=== PATIENT | male | born 1950 | race Caucasian/White ===

== ENCOUNTER 2019-08-24 09:34 | Inpatient (IN) | payer MEDICARE, OTHER ==
[2019-08-24] MEDS ORDERED: ACETAMINOPHEN TAB 500 MG TAB PO STA (09:57)
[2019-08-24] MEDS ORDERED: MORPHINE SULFATE 2 MG/ML SYRINGE IVP ONE (09:59)
[2019-08-24 10:15] LABS: Basophils % (A) 1 %; Eosinophils # (A) 0.1 k/uL (0-0.7); Eosinophils % (A) 2 %; HCT 30.5 % (39.0-53.0); HGB 9.7 gm/dL (13.0-17.5); Hypochromasia Slight; Lymphocytes # (A) 1.2 k/uL (1.0-4.8); Lymphocytes % (A) 14 %; MCH 28.7 pg (25.0-35.0); MCHC 31.8 g/dL (31.0-37.0); MCV 90.3 fL (80.0-100.0); Mean Platelet Volume 7.3; Monocytes # (A) 0.5 k/uL (0-1.0); Monocytes % (A) 6 %; Neutrophils # (A) 6.4 k/uL (1.3-7.7); Neutrophils % (A) 77 %; Platelet Count 394 k/uL (150-450); RBC 3.37 m/uL (4.30-5.90); RDW 14.2 % (11.5-15.5); WBC 8.3 k/uL (3.8-10.6)
[2019-08-24 10:23] LABS: INR 1.2 (<1.2); Partial Thromboplastin Time 22.6 sec (22.0-30.0); Prothrombin Time 11.7 sec (9.0-12.0)
--- NOTE | 2019-08-24 10:25 | ED ---
General Adult HPI - General Chief complaint: Wound/Laceration Stated complaint: Wound, poss COVID Time Seen by Provider: 08/24/19 09:38 Source: patient, RN notes reviewed, old records reviewed Mode of arrival: ambulatory Limitations: no limitations - History of Present Illness Initial comments: Patient is a 69-year-old male who presents from extended care facility with chief complaint of a sacral wound is getting worse. Patient reportedly had a fever yesterday just feeling general malaise. He was tested for [facility]id[facility] the [facility] but no results were back. He was noted to have an elevated CRP yesterday. Patient reports that he has no other complaints at this time. - Related Data Allergies Allergy/AdvReac Type Severity Reaction Status Date / Time No Known Allergies Allergy Verified 08/24/19 10:02 Review of Systems ROS Statement: Those systems with pertinent positive or pertinent negative responses have been documented in the HPI. ROS Other: All systems not noted in ROS Statement are negative. Past Medical History Past Medical History: Atrial Fibrillation, Dementia, Diabetes Mellitus, Hyperlipidemia, Hypertension Additional Past Medical History / Comment(s): gout, sacral wound, anemia, Smoking Status: Never smoker Past Alcohol Use History: None Reported Past Drug Use History: None Reported General Exam - General Exam Comments Initial Comments: 69-year-old female. Alert and oriented. No distress. Limitations: no limitations General appearance: alert, in no apparent distress Head exam: Present: atraumatic, normocephalic, normal inspection Eye exam: Present: normal appearance, PERRL, EOMI. Absent: scleral icterus, conjunctival injection, periorbital swelling ENT exam: Present: normal exam, mucous membranes moist Neck exam: Present: normal inspection. Absent: tenderness, meningismus, lymphadenopathy Respiratory exam: Present: normal lung sounds bilaterally. Absent: respiratory distress, wheezes, rales, rhonchi, stridor Cardiovascular Exam: Present: regular rate, normal rhythm, normal heart sounds. Absent: systolic murmur, diastolic murmur, rubs, gallop, clicks GI/Abdominal exam: Present: soft, normal bowel sounds. Absent: distended, tenderness, guarding, rebound, rigid Extremities exam: Present: normal inspection, full ROM, normal capillary refill. Absent: tenderness, pedal edema, joint swelling, calf tenderness Back exam: Present: other (Genital enlarged stage 3 sacral decubitus ulcer measuring roughly 10cm by 10cm. Difficult to measure with patient rolling on side and uncomfortable. ). Absent: normal inspection Neurological exam: Present: alert, oriented X3, CN II-XII intact Psychiatric exam: Present: normal affect, normal mood Skin exam: Present: warm, dry, intact, normal color. Absent: rash Course Vital Signs 08/24/19 08/24/19 08/24/19 09:53 11:00 11:30 Temperature 98.2 F Pulse Rate 94 88 77 Respiratory 18 22 18 Rate Blood Pressure 135/72 125/83 132/80 O2 Sat by Pulse 98 99 99 Oximetry Medical Decision Making - Medical Decision Making Patient is a 69-year-old male who presents emergency department today with a stage decubitus ulcer with worsening OR progression. Since here from [facility]. This time Patient has an elevated CRP 186. This is increased from yesterday which was 160. Culture was obtained from the wound. Patient was started on Zosyn and vancomycin. Coban swab is negative. Patient will be admitted at this time with consults to surgery and infectious disease. - Lab Data Result diagrams: 08/24/19 09:45 08/24/19 09:45 Lab Results 08/24/19 08/24/19 08/24/19 Range/Units 09:45 09:45 09:45 WBC 8.3 (3.8-10.6) k/uL RBC 3.37 L (4.30-5.90) m/uL Hgb 9.7 L (13.0-17.5) gm/dL Hct 30.5 L (39.0-53.0) % MCV 90.3 (80.0-100.0) fL MCH 28.7 (25.0-35.0) pg MCHC 31.8 (31.0-37.0) g/dL RDW 14.2 (11.5-15.5) % Plt Count 394 (150-450) k/uL Neutrophils % 77 % Lymphocytes % 14 % Monocytes % 6 % Eosinophils % 2 % Basophils % 1 % Neutrophils # 6.4 (1.3-7.7) k/uL Lymphocytes # 1.2 (1.0-4.8) k/uL Monocytes # 0.5 (0-1.0) k/uL Eosinophils # 0.1 (0-0.7) k/uL Basophils # 0.0 (0-0.2) k/uL Hypochromasia Slight ESR 111 H (0-15) mm/hr PT 11.7 (9.0-12.0) sec INR 1.2 H (<1.2) APTT 22.6 (22.0-30.0) sec Sodium 134 L (137-145) mmol/L Potassium 4.4 (3.5-5.1) mmol/L Chloride 105 (98-107) mmol/L Carbon Dioxide 23 (22-30) mmol/L Anion Gap 6 mmol/L BUN 17 (9-20) mg/dL Creatinine 1.08 (0.66-1.25) mg/dL Est GFR (CKD-EPI)AfAm 81 (>60 ml/min/1.73 sqM) Est GFR (CKD-EPI)NonAf 70 (>60 ml/min/1.73 sqM) Glucose 163 H (74-99) mg/dL Plasma Lactic Acid Nikolay (0.7-2.0) mmol/L Calcium 9.4 (8.4-10.2) mg/dL Total Bilirubin 0.5 (0.2-1.3) mg/dL AST 53 (17-59) U/L ALT 83 H (4-49) U/L Alkaline Phosphatase 97 (38-126) U/L Lactate Dehydrogenase 419 (313-618) U/L Troponin I (0.000-0.034) ng/mL C-Reactive Protein 187.6 H (<10.0) mg/L Total Protein 6.3 (6.3-8.2) g/dL Albumin 2.9 L (3.5-5.0) g/dL Coronavirus (PCR) (Not Detectd) 08/24/19 08/24/19 08/24/19 Range/Units 09:45 09:45 10:35 WBC (3.8-10.6) k/uL RBC (4.30-5.90) m/uL Hgb (13.0-17.5) gm/dL Hct (39.0-53.0) % MCV (80.0-100.0) fL MCH (25.0-35.0) pg MCHC (31.0-37.0) g/dL RDW (11.5-15.5) % Plt Count (150-450) k/uL Neutrophils % % Lymphocytes % % Monocytes % % Eosinophils % % Basophils % % Neutrophils # (1.3-7.7) k/uL Lymphocytes # (1.0-4.8) k/uL Monocytes # (0-1.0) k/uL Eosinophils # (0-0.7) k/uL Basophils # (0-0.2) k/uL Hypochromasia ESR (0-15) mm/hr PT (9.0-12.0) sec INR (<1.2) APTT (22.0-30.0) sec Sodium (137-145) mmol/L Potassium (3.5-5.1) mmol/L Chloride (98-107) mmol/L Carbon Dioxide (22-30) mmol/L Anion Gap mmol/L BUN (9-20) mg/dL Creatinine (0.66-1.25) mg/dL Est GFR (CKD-EPI)AfAm (>60 ml/min/1.73 sqM) Est GFR (CKD-EPI)NonAf (>60 ml/min/1.73 sqM) Glucose (74-99) mg/dL Plasma Lactic Acid Nikolay 1.1 (0.7-2.0) mmol/L Calcium (8.4-10.2) mg/dL Total Bilirubin (0.2-1.3) mg/dL AST (17-59) U/L ALT (4-49) U/L Alkaline Phosphatase (38-126) U/L Lactate Dehydrogenase (313-618) U/L Troponin I 0.019 (0.000-0.034) ng/mL C-Reactive Protein (<10.0) mg/L Total Protein (6.3-8.2) g/dL Albumin (3.5-5.0) g/dL Coronavirus (PCR) Not Detected (Not Detectd) 08/24/19 10:25 EKG performed at 10:03 AM shows normal sinus rhythm. Infarct age indeterminate. Cannot rule out anterior infarct. Ventricular rate 85 beats were minute arnel od. It was 180 ms. QS duration is 12 ms. QT QTc is 372/440 ms. - Radiology Data Radiology results: report reviewed Chest chest x-rays negative for focal infiltrate at this time. Disposition Clinical Impression: Sacral decubitus ulcer, Elevated C-reactive protein (CRP) Disposition: ADMITTED IP TO THIS HOSP Condition: Good Is patient prescribed a controlled substance at d/c from ED?: No Referrals: Peter Youssef DO [Primary Care Provider] - 1-2 days Time of Disposition: 12:29
[2019-08-24 10:29] LABS: Albumin 2.9 g/dL (3.5-5.0); Calcium 9.4 mg/dL (8.4-10.2); Potassium 4.4 mmol/L (3.5-5.1); Total Bilirubin 0.5 mg/dL (0.2-1.3); Total Protein 6.3 g/dL (6.3-8.2)
--- NOTE | 2019-08-24 10:45 | XR ---
EXAMINATION TYPE: XR chest 2V DATE OF EXAM: 08/24/2019 COMPARISON: 06/06/2012 HISTORY: 69-year-old male with fever TECHNIQUE: AP and lateral views FINDINGS: Median sternotomy wires and postoperative clips in the mediastinum. Heart upper limits of normal in s ize. Some hazy density at the cardiac apex suggestive of epicardial fat pad. No lee ann consolidation o r pleural effusion. Mild interstitial prominence has a chronic appearance. IMPRESSION: No focal infiltrate at this time.
[2019-08-24 10:46] LABS: C Reactive Protein 187.6 mg/L (<10.0)
[2019-08-24 10:59] LABS: Erythrocyte Sedimentation Rate 111 mm/hr (0-15)
[2019-08-24] MEDS ORDERED: VANCOMYCIN IV PER PHARMACY 1 EACH MISC MISCELLANE PRN (12:02)
[2019-08-24] MEDS ORDERED: PIPERACILLIN-TAZOBACTAM 3.375 GM in SODIUM CHLORIDE 0.9% 100 ML IVPB STA (12:02)
[2019-08-24] MEDS ORDERED: VANCOMYCIN 1,750 MG in SODIUM CHLORIDE 0.9% 500 ML 500 ML IVPB STA (12:10)
[2019-08-24] MEDS ORDERED: HYDROmorphone 0.5 MG/0.5 ML SYRINGE IVP PRN (12:29)
[2019-08-24] MEDS ORDERED: IBUPROFEN 400 MG TAB PO PRN (12:29)
[2019-08-24] MEDS ORDERED: ACETAMINOPHEN TAB 325 MG TAB PO PRN (12:29)
[2019-08-24] MEDS ORDERED: ONDANSETRON 4 MG/2 ML VIAL IVP PRN (12:29)
[2019-08-24] MEDS ORDERED: MORPHINE SULFATE 4 MG/ML SYRINGE IV PRN (12:29)
[2019-08-24] MEDS ORDERED: NALOXONE 0.4 MG/ML 1 ML VIAL IV PRN (12:29)
[2019-08-24] MEDS: SODIUM CHLORIDE 0.9% 1,000 ML IV SCH ×2 (12:57→22:08)
--- NOTE | 2019-08-24 16:38 | P.HPIM ---
History of Present Illness H&P Date: 08/24/19 Chief Complaint: Infected decubitus ulcer History of presenting complaint: This is a pleasant 69-year-old patient, Dr. Youssef whose chronic stable medical conditions include gout, hypertension, hyperlipidemia, diabetes, and mentioned, to establish. Presented from the [facility] with a sacral wound getting worse. It is a decub ulcer. It is started to drain. Patient has pain. No obvious fever and chills. His appetite is somewhat okay. Patient of the most detailed historian. Pain is localized to the sacral area. Review of systems: GEN.: Tired EYES: None HEENT: None NECK: None RESPIRATORY: None CARDIOVASCULAR: None GASTROINTESTINAL: None GENITOURINARY: None MUSCULOSKELETAL: Joint pains LYMPHATICS: None HEMATOLOGICAL: None PSYCHIATRY: A bit forgetful NEUROLOGICAL: None Past medical history to include: Atrial fibrillation, dementia, diabetes mellitus type 2, hyperlipidemia, hypertension, gout, anemia Social history: Resident of [facility]. No reported history of smoking or alcohol. Family history: Reviewed, noncontributory to presentation Physical examination: VITAL SIGNS: 98.2, 94, 18, heart and 35/72, 98% on room air GENERAL: BMI 31.3, laying in bed, a bit uncomfortable. EYES: Pupils equal. Conjunctiva normal. HEENT: External appearance of nose and ears normal, oral cavity grossly normal. NECK: JVD not raised; masses not palpable. HEART: First and second heart sounds are normal; no edema. LUNGS: Respiratory rate normal; clear to auscultation. ABDOMEN: Soft, nontender, liver spleen not palpable, no masses palpable. PSYCH: Able to answer simple questionsl. NEUROLOGICAL: Cranial nerves grossly intact; no facial asymmetry, power and sensation grossly intact. DERMATOLOGICAL: Large sacral decubitus ulcer. More details and nursing notes. Draining LYMPHATICS: No lymph nodes palpable in the axilla and neck INVESTIGATIONS, reviewed in the clinical context: White count 8.3 hemoglobin 9.7 platelets 394 percussion 4.4 creatinine 1.08 C-reactive protein 187, albumin 2.9, COVID-19 PCR-not detected Assessment: -Acute infected coccygeal decubitus ulcer -Persistent atrial fibrillation -Late onset Alzheimer's dementia -Diabetes mellitus type 2 -Hyperlipidemia -Essential hypertension Plan: Home medications resumed. Patient started on vancomycin. Infectious disease and surgery is consulted. Lovenox for DVT prophylaxis. Care was discussed with the patient. Questions were answered. Patient will need debridement of the infected ulcer. Past Medical History Past Medical History: Atrial Fibrillation, Dementia, Diabetes Mellitus, Hyperlipidemia, Hypertension Additional Past Medical History / Comment(s): gout, sacral wound, anemia, Smoking Status: Never smoker Past Alcohol Use History: None Reported Past Drug Use History: None Reported Medications and Allergies Home Medications Medication Instructions Recorded Confirmed Type Atorvastatin [Lipitor] 10 mg PO HS 08/24/19 08/24/19 History Hydrocodone/Acetaminophen [[place] 1 tab PO Q6H PRN 08/24/19 08/24/19 History 7.5-325] Ibuprofen 600 mg PO Q6H PRN 08/24/19 08/24/19 History Metoprolol Succinate [Kapspargo 25 mg PO DAILY 08/24/19 08/24/19 History Sprinkle] Mupirocin 2% Oint [Bactroban 2% 1 applic TOPICAL DAILY PRN 08/24/19 08/24/19 History Oint] Timolol 0.5% Ophth Soln [Timoptic 1 drop BOTH EYES BID 08/24/19 08/24/19 History 0.5% Ophth Soln] amLODIPine [Norvasc] 5 mg PO DAILY 08/24/19 08/24/19 History Allergies Allergy/AdvReac Type Severity Reaction Status Date / Time No Known Allergies Allergy Verified 08/24/19 12:50 Physical Exam Vitals: Vital Signs Temp Pulse Pulse Resp BP BP Pulse Ox 08/24/19 15:19 98.4 F 89 16 135/66 100 08/24/19 13:51 98.7 F 89 18 133/70 08/24/19 13:00 99.1 F 87 19 147/76 98 08/24/19 12:30 87 19 107/68 08/24/19 12:00 75 17 115/63 08/24/19 11:30 77 18 132/80 99 08/24/19 11:00 88 22 125/83 99 08/24/19 09:53 98.2 F 94 18 135/72 98 Intake and Output 08/24/19 08/24/19 08/24/19 06:59 14:59 22:59 Other: Weight 90.718 kg Results CBC & Chem 7: 08/24/19 09:45 08/24/19 09:45 Labs: Abnormal Lab Results - Last 24 Hours (Table) 08/24/19 08/24/19 08/24/19 Range/Units 09:45 09:45 09:45 RBC 3.37 L (4.30-5.90) m/uL Hgb 9.7 L (13.0-17.5) gm/dL Hct 30.5 L (39.0-53.0) % ESR 111 H (0-15) mm/hr INR 1.2 H (<1.2) Sodium 134 L (137-145) mmol/L Glucose 163 H (74-99) mg/dL ALT 83 H (4-49) U/L C-Reactive Protein 187.6 H (<10.0) mg/L Albumin 2.9 L (3.5-5.0) g/dL Microbiology - Last 24 Hours (Table) 08/24/19 09:45 Wound Culture - Preliminary Buttock
[2019-08-24 16:54] LABS: Glucose,Whole Blood 119 mg/dL (75-99)
[2019-08-24] MEDS: ENOXAPARIN 40 MG/0.4 ML SYRINGE SQ SCH (17:08)
[2019-08-24] MEDS: INSULIN ASPART (NovoLOG) 100 UNIT/ML VIAL SQ SCH ×2 (17:15→20:16)
[2019-08-24 17:35] LABS: Appearance,Urine Clear (Clear); Bacteria,Urine Rare /hpf; Bilirubin,Urine Negative (Negative); Blood,Urine Small (Negative); Color,Urine Yellow; Glucose,Urine (UA) Negative (Negative); Hyaline Casts,Urine 1 /lpf (0-2); Ketones,Urine Negative (Negative); Leukocyte Esterase,Urine Negative (Negative); Mucus,Urine Rare /hpf; Nitrite,Urine Negative (Negative); PH, Urine 5.5 (5.0-8.0); Protein,Urine Negative (Negative); RBC,Urine 26 /hpf (0-5); Specific Gravity,Urine 1.016 (1.001-1.035); Urobilinogen,Urine <2.0 mg/dL (<2.0); WBC,Urine 1 /hpf (0-5)
[2019-08-24] MEDS: HYDROcodone/APAP 7.5-325MG 1 EACH TAB PO PRN (18:17)
[2019-08-24 20:13] LABS: Glucose,Whole Blood 119 mg/dL (75-99)
[2019-08-24] MEDS: TIMOLOL 0.5% OPHTH DROPS 5 ML BTL BOTH EYES SCH (20:23)
[2019-08-24] MEDS: ATORVASTATIN 10 MG TAB PO SCH (20:23)
--- NOTE | 2019-08-25 00:28 | CONS ---
CONSULTATION DATE OF SERVICE: 08/24/2019. REASON FOR CONSULTATION: Infected sacral pressure ulcer. HISTORY OF PRESENT ILLNESS: The patient is a 69-year-old male who has been brought to the ER for evaluation of sacral pressure ulcer that had been getting worse. Apparently the patient did have fever yesterday with generalized malaise. The patient did have COVID- 19 testing done in the correction and results pending. The patient subsequently has been sent to [facility] ER for management of infected sacral pressure ulcer with concern for possible cellulitis and COVID-19 infection. The patient currently denies having any fever or any chills. He denies having any headache. No URI symptoms. No chest pain, shortness of breath or cough. No abdominal pain or diarrhea. The patient is not sure for how long he has a sacral pressure ulcer and local treatment has been. Patient on admission to the hospital has been afebrile. He did have a normal white count with no lymphopenia. ESR was elevated to 111. The patient's creatinine was normal. ALT was 83. CRP is 187. Urine has been negative. COVID-19 testing was negative. The patient did have a chest x-ray which was negative. Infectious Disease was consulted for further management for local wound care and need for antibiotic therapy. The patient is currently on vancomycin. REVIEW OF SYSTEMS: Positive points have been mentioned in HPI. Rest of systems are negative. PAST MEDICAL HISTORY: Atrial fibrillation, diabetes mellitus, hypertension, hyperlipidemia, dementia. PAST SURGICAL HISTORY: Surgical debridement of his sacral wound. SOCIAL HISTORY: Current correction resident. No smoking, drinking or drug use. FAMILY HISTORY: No pertinent findings noticed. ALLERGIES: No known drug allergies. MEDICATIONS: Medications include the patient is currently on Tylenol, [place], Norvasc, Lipitor, Lovenox, Dilaudid, Motrin, NovoLog, Toprol-XL, morphine sulfate, Narcan, Zofran, Protonix and vancomycin pharmacy to dose. PHYSICAL EXAMINATION: Blood pressure is 118/63 with a pulse of 86, temperature 98.5. He is 98% on room air. General description is an elderly male lying in bed in no distress. No tachypnea or accessory muscle of respiration use. HEENT: Examination shows slight pallor. No scleral icterus. Oral mucosa membrane is dry. NECK: Trachea central. No thyromegaly. LUNGS: Unlabored breathing, clear to auscultation. No wheeze or crackle. HEART: S1, S2. Regular rate and rhythm. ABDOMEN: Soft, no tenderness. No guarding or rigidity. EXTREMITIES: No edema of feet. Examination of sacral wound did show significant amount of slough tissue with surrounding erythema and . NEUROLOGICAL: Patient is awake, alert, oriented x3. Mood and affect normal. LABS: Hemoglobin 9.7, white count 8.3, BUN of 17, creatinine 1.08. Electrolytes have been normal. Wound cultures currently pending. DIAGNOSTIC IMPRESSION AND PLAN: Patient with infected sacral pressure ulcer, likely responsible for his fever. Clinically doubt COVID-19. This patient will likely need deep surgical debridement and deep culture to determine the infected pathogen and likely IV antibiotic therapy and local wound care. PLAN: 1. Await surgical debridement and deep cultures. 2. Wet-to-dry dressing for now. 3. Continue the vancomycin pharmacy to dose while watching his kidney function and vancomycin trough closely. 4. We will follow on his clinical condition and culture to further adjust medication if needed. Thank you for this consultation. Will follow this patient along with you. MMODL / IJN: [id number] /
[2019-08-25] MEDS: HYDROcodone/APAP 7.5-325MG 1 EACH TAB PO PRN (03:32)
[2019-08-25] MEDS: VANCOMYCIN 1,750 MG in SODIUM CHLORIDE 0.9% 500 ML 500 ML IVPB SCH ×2 (05:25→21:40)
[2019-08-25] MEDS ORDERED: DEXAMETHASONE SOD PHOSPHATE 10 MG/ML 1 ML VIAL IV ONE (05:56)
[2019-08-25] MEDS ORDERED: HYDROmorphone 0.5 MG/0.5 ML SYRINGE IVP PRN (05:56)
[2019-08-25] MEDS ORDERED: ONDANSETRON 4 MG/2 ML VIAL IVP ONE (05:56)
[2019-08-25 06:49] LABS: Glucose,Whole Blood 126 mg/dL (75-99)
[2019-08-25] MEDS: INSULIN ASPART (NovoLOG) 100 UNIT/ML VIAL SQ SCH ×4 (07:05→20:53)
[2019-08-25] MEDS: LACTATED RINGERS 1,000 ML IV SCH (07:42)
[2019-08-25] MEDS: METOPROLOL SUCCINATE (ER) 25 MG TAB.ER.24H PO SCH (07:43)
[2019-08-25] MEDS: amLODIPine 5 MG TAB PO SCH (07:43)
[2019-08-25] MEDS: SODIUM CHLORIDE 0.9% 1,000 ML IV SCH ×2 (07:44→19:33)
[2019-08-25] MEDS: PANTOPRAZOLE 40 MG/10 ML VIAL IV SCH (07:44)
[2019-08-25] MEDS: TIMOLOL 0.5% OPHTH DROPS 5 ML BTL BOTH EYES SCH ×2 (07:45→21:40)
--- NOTE | 2019-08-25 08:12 | P.GSCN ---
History of Present Illness Consult date: 08/25/19 Reason for Consult: sacral decubitus ulcer Requesting physician: Rhea Pizarro History of present illness: CHIEF COMPLAINT: Sacral decubitus ulcer HISTORY OF PRESENT ILLNESS: 69-year-old male who is currently admitted to the hospital secondary to worsening sacral decubitus ulcer. General surgery was consulted for further evaluation. PAST MEDICAL HISTORY: See list. PAST SURGICAL HISTORY: See list. SOCIAL HISTORY: No illicit drug use. REVIEW OF SYSTEMS: CONSTITUTIONAL: Reports fever. Reports generalized malaise. HEENT: Denies blurred vision, vision changes, or eye pain. Denies hemoptysis CARDIOVASCULAR: Denies chest pain or pressure. RESPIRATORY: No shortness of breath. GASTROINTESTINAL: Denies abdominal pain. Denies nausea or vomiting HEMATOLOGIC: Denies bleeding disorders. GENITOURINARY: Denies any blood in urine. SKIN: Reports chronic sacral wound. PHYSICAL EXAM: VITAL SIGNS: Reviewed. GENERAL: Well-developed in no acute distress. HEENT: No sclera icterus. Extraocular movements grossly intact. Moist buccal mucosa. Head is atraumatic, normocephalic. ABDOMEN: Soft. Nondistended. Nontender. NEUROLOGIC: Alert and oriented. Cranial nerves II through XII grossly intact. SKIN: Sacral decubitus ulcer with large amount of slough and erythema. LABORATORY DATA: WBC 8.3. Hemoglobin 9.7. Platelet count 394. IMAGING: Chest x-ray: No focal infiltrate ASSESSMENT: 1. Stage IV sacral decubitus ulcer PLAN: Continue antibiotics per infectious disease Patient to undergo surgical debridement of sacral decubitus ulcer today with Dr. Bertrand Nurse practitioner note has been reviewed by physician. Signing provider agrees with the documented findings, assessment, and plan of care. Past Medical History Past Medical History: Atrial Fibrillation, Dementia, Diabetes Mellitus, Hyperlipidemia, Hypertension Additional Past Medical History / Comment(s): gout, sacral wound, anemia, History of Any Multi-Drug Resistant Organisms: None Reported Smoking Status: Never smoker Past Alcohol Use History: None Reported Past Drug Use History: None Reported Medications and Allergies Home Medications Medication Instructions Recorded Confirmed Type Atorvastatin [Lipitor] 10 mg PO HS 08/24/19 08/24/19 History Hydrocodone/Acetaminophen [[place] 1 tab PO Q6H PRN 08/24/19 08/24/19 History 7.5-325] Ibuprofen 600 mg PO Q6H PRN 08/24/19 08/24/19 History Metoprolol Succinate [Kapspargo 25 mg PO DAILY 08/24/19 08/24/19 History Sprinkle] Mupirocin 2% Oint [Bactroban 2% 1 applic TOPICAL DAILY PRN 08/24/19 08/24/19 History Oint] Timolol 0.5% Ophth Soln [Timoptic 1 drop BOTH EYES BID 08/24/19 08/24/19 History 0.5% Ophth Soln] amLODIPine [Norvasc] 5 mg PO DAILY 08/24/19 08/24/19 History Allergies Allergy/AdvReac Type Severity Reaction Status Date / Time No Known Allergies Allergy Verified 08/24/19 12:50 Surgical - Exam Vital Signs Temp Pulse Resp BP Pulse Ox 98.2 F 94 18 135/72 98 08/24/19 09:53 08/24/19 09:53 08/24/19 09:53 08/24/19 09:53 08/24/19 09:53 Results - Labs 08/24/19 09:45 08/24/19 09:45 Abnormal Lab Results - Last 24 Hours (Table) 08/24/19 08/24/19 08/24/19 Range/Units 09:45 09:45 09:45 RBC 3.37 L (4.30-5.90) m/uL Hgb 9.7 L (13.0-17.5) gm/dL Hct 30.5 L (39.0-53.0) % ESR 111 H (0-15) mm/hr INR 1.2 H (<1.2) Sodium 134 L (137-145) mmol/L Glucose 163 H (74-99) mg/dL POC Glucose (mg/dL) (75-99) mg/dL ALT 83 H (4-49) U/L C-Reactive Protein 187.6 H (<10.0) mg/L Albumin 2.9 L (3.5-5.0) g/dL Urine Blood (Negative) Urine RBC (0-5) /hpf Urine Bacteria (None) /hpf Urine Mucus (None) /hpf 08/24/19 08/24/19 08/24/19 Range/Units 16:53 17:05 20:10 RBC (4.30-5.90) m/uL Hgb (13.0-17.5) gm/dL Hct (39.0-53.0) % ESR (0-15) mm/hr INR (<1.2) Sodium (137-145) mmol/L Glucose (74-99) mg/dL POC Glucose (mg/dL) 119 H 119 H (75-99) mg/dL ALT (4-49) U/L C-Reactive Protein (<10.0) mg/L Albumin (3.5-5.0) g/dL Urine Blood Small H (Negative) Urine RBC 26 H (0-5) /hpf Urine Bacteria Rare H (None) /hpf Urine Mucus Rare H (None) /hpf 08/25/19 Range/Units 06:44 RBC (4.30-5.90) m/uL Hgb (13.0-17.5) gm/dL Hct (39.0-53.0) % ESR (0-15) mm/hr INR (<1.2) Sodium (137-145) mmol/L Glucose (74-99) mg/dL POC Glucose (mg/dL) 126 H (75-99) mg/dL ALT (4-49) U/L C-Reactive Protein (<10.0) mg/L Albumin (3.5-5.0) g/dL Urine Blood (Negative) Urine RBC (0-5) /hpf Urine Bacteria (None) /hpf Urine Mucus (None) /hpf Microbiology - Last 24 Hours (Table) 08/24/19 09:45 Gram Stain - Preliminary Buttock Wound Culture - Preliminary Diabetes panel 08/24/19 Range/Units 09:45 Sodium 134 L (137-145) mmol/L Potassium 4.4 (3.5-5.1) mmol/L Chloride 105 (98-107) mmol/L Carbon Dioxide 23 (22-30) mmol/L BUN 17 (9-20) mg/dL Creatinine 1.08 (0.66-1.25) mg/dL Glucose 163 H (74-99) mg/dL Calcium 9.4 (8.4-10.2) mg/dL AST 53 (17-59) U/L ALT 83 H (4-49) U/L Alkaline Phosphatase 97 (38-126) U/L Total Protein 6.3 (6.3-8.2) g/dL Albumin 2.9 L (3.5-5.0) g/dL Calcium panel 08/24/19 Range/Units 09:45 Calcium 9.4 (8.4-10.2) mg/dL Albumin 2.9 L (3.5-5.0) g/dL Pituitary panel 08/24/19 Range/Units 09:45 Sodium 134 L (137-145) mmol/L Potassium 4.4 (3.5-5.1) mmol/L Chloride 105 (98-107) mmol/L Carbon Dioxide 23 (22-30) mmol/L BUN 17 (9-20) mg/dL Creatinine 1.08 (0.66-1.25) mg/dL Glucose 163 H (74-99) mg/dL Calcium 9.4 (8.4-10.2) mg/dL Adrenal panel 08/24/19 Range/Units 09:45 Sodium 134 L (137-145) mmol/L Potassium 4.4 (3.5-5.1) mmol/L Chloride 105 (98-107) mmol/L Carbon Dioxide 23 (22-30) mmol/L BUN 17 (9-20) mg/dL Creatinine 1.08 (0.66-1.25) mg/dL Glucose 163 H (74-99) mg/dL Calcium 9.4 (8.4-10.2) mg/dL Total Bilirubin 0.5 (0.2-1.3) mg/dL AST 53 (17-59) U/L ALT 83 H (4-49) U/L Alkaline Phosphatase 97 (38-126) U/L Total Protein 6.3 (6.3-8.2) g/dL Albumin 2.9 L (3.5-5.0) g/dL
[2019-08-25 11:39] LABS: Glucose,Whole Blood 118 mg/dL (75-99)
[2019-08-25 13:01] VITALS: BMI 31.3
[2019-08-25] MEDS ORDERED: SUCCINYLCHOLINE CHLORIDE 100 MG/5 ML SYR IV ONE (15:18)
[2019-08-25] MEDS ORDERED: LACTATED RINGERS 1,000 ML IV ONE (15:18)
[2019-08-25] MEDS ORDERED: PROPOFOL 10 MG/ML 20 ML VIAL IV ONE (15:18)
[2019-08-25] MEDS ORDERED: fentaNYL (PF) 50 MCG/ML 2 ML AMP ONE (15:18)
[2019-08-25] MEDS ORDERED: LIDOCAINE 1% INJ 10MG/ML (20 ML MDV) ONE (15:18)
[2019-08-25] MEDS: ENOXAPARIN 40 MG/0.4 ML SYRINGE SQ SCH (15:32)
--- NOTE | 2019-08-25 15:56 | P.OP ---
Date of Procedure: 08/25/19 Preoperative Diagnosis: Sacral decubitus ulcer Postoperative Diagnosis: Sacral decub's ulcer with necrosis of skin and fat Procedure(s) Performed: Debridement of sacral decubitus ulcer Anesthesia: GUSTAVO Surgeon: Jorge Bertrand Estimated Blood Loss (ml): 10 Pathology: other (Necrotic skin and fat) Condition: stable Disposition: PACU Description of Procedure: The patient's placed in the operative table in the supine position. He received general anesthesia. His sacrum was prepped and draped usual sterile fashion. Patient had a full-thickness he was ulcer. Using a 15 blade the skin and fat were debrided. This was taken back to the level of bleeding fat. The [place]. The wound measured 7 x 10 x 3 cm. Patient top procedure well sterile dressing applied. He was sent to the surgical floor in stable condition.
[2019-08-25 16:33] LABS: Glucose,Whole Blood 105 mg/dL (75-99)
[2019-08-25 20:49] LABS: Glucose,Whole Blood 119 mg/dL (75-99)
[2019-08-25] MEDS: ATORVASTATIN 10 MG TAB PO SCH (21:40)
[2019-08-25] MEDS: AMPICILLIN-SULBACTAM 3 GM in SODIUM CHLORIDE 0.9% 100 ML IVPB SCH (23:24)
--- NOTE | 2019-08-26 02:44 | PN ---
PROGRESS NOTE DATE OF SERVICE: 08/25/2019 REASON FOR FOLLOW UP: Infected sacral pressure ulcer. INTERVAL HISTORY: The patient was seen on rounds this morning. The patient has been afebrile. The patient denied having any chest pain. No shortness of breath or cough. No nausea, no vomiting. No abdominal pain. No pain to the sacral wound area. PHYSICAL EXAMINATION: Blood pressure 130/73 with a pulse of 96, temperature 98.5. He is 98% on room air. General description is an elderly male lying in bed in no distress. Respiratory system: Unlabored breathing, clear to auscultation anteriorly. Heart S1, S2. Regular rate and rhythm. Abdomen soft, no tenderness. LABS: No new labs have been obtained today. Wound culture with gram-negative bacilli and group D Enterococcus. DIAGNOSTIC IMPRESSION AND PLAN: Patient with infected sacral pressure ulcer. Wound culture now showing group group D Enterococcus and gram-negative bacilli. We will add Unasyn to his current medical regime of vancomycin. In view of underlying ( ), the patient will need a PICC line for outpatient antibiotic therapy. Local wound care. ( ) after re-evaluation of the wound hospice post dialysis, possible wound VAC and continue supportive care. MMODL / IJN: [id number] /
[2019-08-26] MEDS: AMPICILLIN-SULBACTAM 3 GM in SODIUM CHLORIDE 0.9% 100 ML IVPB SCH ×3 (05:15→18:07)
[2019-08-26] MEDS: LACTATED RINGERS 1,000 ML IV SCH (05:16)
[2019-08-26] MEDS: SODIUM CHLORIDE 0.9% 1,000 ML IV SCH ×3 (05:16→21:59)
[2019-08-26 07:18] LABS: Glucose,Whole Blood 109 mg/dL (75-99)
[2019-08-26] MEDS: METOPROLOL SUCCINATE (ER) 25 MG TAB.ER.24H PO SCH (07:26)
[2019-08-26] MEDS: PANTOPRAZOLE 40 MG/10 ML VIAL IV SCH (07:26)
[2019-08-26] MEDS: amLODIPine 5 MG TAB PO SCH (07:27)
[2019-08-26] MEDS: HYDROcodone/APAP 7.5-325MG 1 EACH TAB PO PRN ×3 (07:27→22:06)
[2019-08-26] MEDS: TIMOLOL 0.5% OPHTH DROPS 5 ML BTL BOTH EYES SCH ×2 (07:28→21:59)
[2019-08-26] MEDS: INSULIN ASPART (NovoLOG) 100 UNIT/ML VIAL SQ SCH ×4 (07:30→22:00)
[2019-08-26 08:34] LABS: Calcium 9.1 mg/dL (8.4-10.2); Potassium 4.6 mmol/L (3.5-5.1)
--- NOTE | 2019-08-26 10:36 | CDI ---
Documentation Clarification Form Date: 08/26/2019 09:18:58 AM From: Cynthia Cunha RN CCDS Admit Date: 08/26/2019 07:47:00 AM Patient Name: Jeison Nguyen Visit Number: [id number] Discharge Date: ATTENTION: The Clinical Documentation Specialists (CDI) and [facility] Coding Staff appreciate your assistance in clarifying documentation. Please respond to the clarification below the line at the bottom and electronically sign. The CDI & [facility] Coding staff will review the response and follow-up if needed. Please note: Queries are made part of the Legal Health Record. If you have any questions, please contact the author of this message via ITS. Dr. Jorge Bertrand Per your procedure note, a debridement was performed on 08/24 History/Risk Factors: 63-year-old male presents to the ED from [facility] with a sacral wound that is getting worse and starting to drain. Medical history DM2, HTN, Atrial Fib and Alzheimers dementia. Clinical Indicators: 08/24 Surgical Consult Stage IV Sacral Decubitus Ulcer 08/24 Procedure Note - Sacral Decubitus Ulcer Debridement, 15 blade, necrosis of skin and fat, 7x 10 x3 cm Treatment: Surgical Treatment of a Sacral decubitus Ulcer Five elements required for accurate and compliant documentation of a debridement: 1. Technique used (e.g., excisional, excised, cutting, etc.) 2. Instrument(s) used (e.g., scalpel, curette, etc.) 3. Nature of the tissue removed (e.g., necrotic, devitalized tissues, non- viable tissue, etc.) 4. Appearance and size of the wound (e.g., down to fresh bleeding tissue, 7cm x 10cm, etc.) 5. Depth of the debridement* (e.g., skin, subcutaneous tissue, fascia, muscle, bone, etc.) In order to capture the severity of condition and code the appropriate procedure; could you please document the following: Excisional debridement (the removal of necrotic, devitalized tissue or slough by means of cutting away of tissue) Non-excisional debridement (the removal of necrotic, devitalized tissue or slough by means of flushing, brushing, or washing. (Irrigation) Appearance and size of the wound Depth of Debridement*(e.g., skin, subcutaneous tissue, fascia, muscle, bone, etc.) Other; please specify Unable to determine (Last Revision: July 2017) The tissue was excisional debridement of necrotic and devitalized tissue by means of cutting with a 15 blade MTDD
[2019-08-26 11:58] LABS: Glucose,Whole Blood 128 mg/dL (75-99)
[2019-08-26] MEDS: VANCOMYCIN 1,750 MG in SODIUM CHLORIDE 0.9% 500 ML 500 ML IVPB SCH (14:05)
--- NOTE | 2019-08-26 14:45 | P.PN ---
Subjective Progress Note Date: 08/26/19 CHIEF COMPLAINT: Sacral decubitus ulcer HISTORY OF PRESENT ILLNESS: Patient is status post debridement of sacral decubitus ulcer with Dr. Bertrand. Postop day #1. Patient reports his pain is tolerable. PHYSICAL EXAM: VITAL SIGNS: Reviewed. GENERAL: Well-developed in no acute distress. HEENT: No sclera icterus. Extraocular movements grossly intact. Moist buccal mucosa. Head is atraumatic, normocephalic. ABDOMEN: Soft. Nondistended. Nontender. NEUROLOGIC: Alert and oriented. Cranial nerves II through XII grossly intact. SKIN: Dressing clean dry and intact ASSESSMENT: 1. Stage IV sacral decubitus ulcer PLAN: Continue antibiotics per infectious disease Continue local wound care per infectious disease Nurse practitioner note has been reviewed by physician. Signing provider agrees with the documented findings, assessment, and plan of care. Objective - Vital Signs Vital signs: Vital Signs Temp 98.5 F 08/26/19 07:35 Pulse 86 08/26/19 07:35 Resp 16 08/26/19 07:35 BP 123/62 08/26/19 07:35 Pulse Ox 98 08/26/19 07:35 Intake & Output 08/25/19 08/26/19 08/26/19 18:59 06:59 18:59 Intake Total 937 231 1176 Output Total 5 300 Balance 050 124 3276 Weight 90.718 kg Intake: IV 200 Intake, IV Titration 260 1300 Amount Ampicillin-Sulbactam 3 gm 100 In Sodium Chloride 0.9% 100 ml @ 200 mls/hr IVPB Q6HR [facility] Rx#:[id number] Lactated Ringers 1,000 ml 60 @ 20 mls/hr IV .Q24H [facility] Rx#:[id number] Sodium Chloride 0.9% 1, 200 700 000 ml @ 100 mls/hr IV . Q10H [facility] Rx#:[id number] Vancomycin 1,750 mg In 500 Sodium Chloride 0.9% 500 ml 500 ml @ 167 mls/hr IVPB Q16H [facility] Rx#: [id number] Oral 480 360 Output: Urine 300 Estimated Blood Loss 5 Other: Voiding Method Urinal Urinal Urinal # Voids 1 - Labs CBC & Chem 7: 08/24/19 09:45 08/26/19 07:22 Labs: Abnormal Lab Results - Last 24 Hours (Table) 08/25/19 08/25/19 08/26/19 Range/Units 16:31 20:28 07:13 Chloride (98-107) mmol/L Creatinine (0.66-1.25) mg/dL Glucose (74-99) mg/dL POC Glucose (mg/dL) 105 H 119 H 109 H (75-99) mg/dL 08/26/19 08/26/19 Range/Units 07:22 11:56 Chloride 108 H (98-107) mmol/L Creatinine 1.29 H (0.66-1.25) mg/dL Glucose 107 H (74-99) mg/dL POC Glucose (mg/dL) 128 H (75-99) mg/dL Microbiology - Last 24 Hours (Table) 08/24/19 10:45 Blood Culture - Preliminary Blood No Growth after 48 hours 08/24/19 09:45 Gram Stain - Final Buttock Wound Culture - Preliminary Escherichia coli Enterococcus faecalis Enterobacter cloacae
[2019-08-26] MEDS: ENOXAPARIN 40 MG/0.4 ML SYRINGE SQ SCH (16:34)
--- NOTE | 2019-08-26 20:47 | P.PN ---
Progress Note - Text Progress Note Date: 08/25/19 Chief Complaint: Infected decubitus ulcer History of presenting complaint: This is a pleasant 69-year-old patient, Dr. Youssef whose chronic stable medical conditions include gout, hypertension, hyperlipidemia, diabetes, and mentioned, to establish. Presented from the [facility] with a sacral wound getting worse. It is a decub ulcer. It is started to drain. Patient has pain. No obvious fever and chills. His appetite is somewhat okay. Patient of the most detailed historian. Pain is localized to the sacral area. Admitted with infected decubitus ulcer. Today-when debridement of the ulcer. Pain control. No new issues. Laying in bed. Did tolerate some diet. Review of systems: Was done for constitutional, cardiovascular, GI, pulmonary. relevant finding as above Active Medications Acetaminophen (Tylenol Tab) 650 mg PO Q6HR PRN PRN Reason: Mild Pain or Fever > 100.5 Hydrocodone Bitart/Acetaminophen ([place] 7.5-325) 1 each PO Q6H PRN PRN Reason: Pain Last Admin: 08/26/19 14:04 Dose: 1 each Documented by: Amlodipine Besylate (Norvasc) 5 mg PO DAILY [facility] Last Admin: 08/26/19 07:27 Dose: 5 mg Documented by: Atorvastatin Calcium (Lipitor) 10 mg PO HS [facility] Last Admin: 08/25/19 21:40 Dose: 10 mg Documented by: Enoxaparin Sodium (Lovenox) 40 mg SQ Q24H [facility] Last Admin: 08/26/19 16:34 Dose: 40 mg Documented by: Hydromorphone HCl (Dilaudid) 0.5 mg IVP Q3HR PRN PRN Reason: Moderate Pain Sodium Chloride (Saline 0.9%) 1,000 mls @ 100 mls/hr IV .Q10H [facility] Last Admin: 08/26/19 14:05 Dose: Not Given Documented by: Vancomycin HCl 1,750 mg/ (Sodium Chloride) 500 mls @ 167 mls/hr IVPB Q16H [facility] Last Admin: 08/26/19 14:05 Dose: 167 mls/hr Documented by: Lactated Ringer's (Lactated Ringers) 1,000 mls @ 20 mls/hr IV .Q24H [facility] Last Admin: 08/26/19 05:16 Dose: Not Given Documented by: Ampicillin Sodium/Sulbactam (Sodium 3 gm/ Sodium Chloride) 100 mls @ 200 mls/hr IVPB Q6HR [facility] Last Admin: 08/26/19 18:07 Dose: 200 mls/hr Documented by: Ibuprofen (Motrin) 400 mg PO Q6HR PRN PRN Reason: Mild Pain or Fever > 100.5 Insulin Aspart (Novolog) 0 unit SQ ACHS [facility]; Protocol Last Admin: 08/26/19 17:28 Dose: Not Given Documented by: Metoprolol Succinate (Toprol Xl) 25 mg PO DAILY [facility] Last Admin: 08/26/19 07:26 Dose: 25 mg Documented by: Miscellaneous Information (Vancomycin Trough Due) 0 each MISCELLANE DIRECTED ONE Stop: 08/27/19 05:01 Morphine Sulfate (Morphine Sulfate (Inj)) 4 mg IV Q4HR PRN PRN Reason: Severe Pain Last Admin: 08/25/19 23:19 Dose: 4 mg Documented by: Naloxone HCl (Narcan) 0.2 mg IV Q2M PRN PRN Reason: Opioid Reversal Ondansetron HCl (Zofran) 4 mg IVP Q8HR PRN PRN Reason: Nausea And Vomiting Pantoprazole Sodium (Protonix) 40 mg IV DAILY [facility] Last Admin: 08/26/19 07:26 Dose: 40 mg Documented by: Timolol Maleate (Timoptic) 1 drops BOTH EYES BID [facility] Last Admin: 08/26/19 07:28 Dose: 1 drops Documented by: Physical examination: VITAL SIGNS: 98.5, 87, 17, 140/80, 96% on room air GENERAL:, laying in bed, uncomfortable. EYES: Pupils equal. Conjunctiva normal. HEENT: External appearance of nose and ears normal, oral cavity grossly normal. NECK: JVD not raised; masses not palpable. HEART: First and second heart sounds are normal; no edema. LUNGS: Respiratory rate normal; clear to auscultation. ABDOMEN: Soft, nontender, liver spleen not palpable, no masses palpable. PSYCH: Able to answer simple questionsl. NEUROLOGICAL: Cranial nerves grossly intact; no facial asymmetry, power and sensation grossly intact. DERMATOLOGICAL: Large sacral decubitus ulcer. INVESTIGATIONS, reviewed in the clinical context: White count 8.3 hemoglobin 9.7 platelets 394 percussion 4.4 creatinine 1.08 C-reactive protein 187, albumin 2.9, COVID-19 PCR-not detected Wound cultures are showing-multiple organisms including E. coli, Enterococcus faecalis, Enterobacter cloacae keep. Assessment: -Acute infected coccygeal decubitus ulcer-debrided on August [address] Bertrand. Cultures growing multiple organisms -Persistent atrial fibrillation -Late onset Alzheimer's dementia -Diabetes mellitus type 2 -Hyperlipidemia -Essential hypertension Plan: Continue current medication treatment plan. Antibiotics are being coordinated by Dr. Cristina. Discussed the patient.
--- NOTE | 2019-08-26 20:50 | P.PN ---
Progress Note - Text Progress Note Date: 08/26/19 Chief Complaint: Infected decubitus ulcer History of presenting complaint: This is a pleasant 69-year-old patient, Dr. Youssef whose chronic stable medical conditions include gout, hypertension, hyperlipidemia, diabetes, and mentioned, to establish. Presented from the [facility] with a sacral wound getting worse. It is a decub ulcer. It is started to drain. Patient has pain. No obvious fever and chills. His appetite is somewhat okay. Patient of the most detailed historian. Pain is localized to the sacral area. Admitted with infected decubitus ulcer. Debridement on August [address] Bertrand. Growing multiple organisms. Today-laying in bed. Pain control. Tolerating a diet. Review of systems: Was done for constitutional, cardiovascular, GI, pulmonary. relevant finding as above Active Medications Acetaminophen (Tylenol Tab) 650 mg PO Q6HR PRN PRN Reason: Mild Pain or Fever > 100.5 Hydrocodone Bitart/Acetaminophen ([place] 7.5-325) 1 each PO Q6H PRN PRN Reason: Pain Last Admin: 08/26/19 14:04 Dose: 1 each Documented by: Amlodipine Besylate (Norvasc) 5 mg PO DAILY [facility] Last Admin: 08/26/19 07:27 Dose: 5 mg Documented by: Atorvastatin Calcium (Lipitor) 10 mg PO HS [facility] Last Admin: 08/25/19 21:40 Dose: 10 mg Documented by: Enoxaparin Sodium (Lovenox) 40 mg SQ Q24H [facility] Last Admin: 08/26/19 16:34 Dose: 40 mg Documented by: Hydromorphone HCl (Dilaudid) 0.5 mg IVP Q3HR PRN PRN Reason: Moderate Pain Sodium Chloride (Saline 0.9%) 1,000 mls @ 100 mls/hr IV .Q10H [facility] Last Admin: 08/26/19 14:05 Dose: Not Given Documented by: Vancomycin HCl 1,750 mg/ (Sodium Chloride) 500 mls @ 167 mls/hr IVPB Q16H [facility] Last Admin: 08/26/19 14:05 Dose: 167 mls/hr Documented by: Lactated Ringer's (Lactated Ringers) 1,000 mls @ 20 mls/hr IV .Q24H [facility] Last Admin: 08/26/19 05:16 Dose: Not Given Documented by: Ampicillin Sodium/Sulbactam (Sodium 3 gm/ Sodium Chloride) 100 mls @ 200 mls/hr IVPB Q6HR [facility] Last Admin: 08/26/19 18:07 Dose: 200 mls/hr Documented by: Ibuprofen (Motrin) 400 mg PO Q6HR PRN PRN Reason: Mild Pain or Fever > 100.5 Insulin Aspart (Novolog) 0 unit SQ ACHS [facility]; Protocol Last Admin: 08/26/19 17:28 Dose: Not Given Documented by: Metoprolol Succinate (Toprol Xl) 25 mg PO DAILY [facility] Last Admin: 08/26/19 07:26 Dose: 25 mg Documented by: Miscellaneous Information (Vancomycin Trough Due) 0 each MISCELLANE DIRECTED ONE Stop: 08/27/19 05:01 Morphine Sulfate (Morphine Sulfate (Inj)) 4 mg IV Q4HR PRN PRN Reason: Severe Pain Last Admin: 08/25/19 23:19 Dose: 4 mg Documented by: Naloxone HCl (Narcan) 0.2 mg IV Q2M PRN PRN Reason: Opioid Reversal Ondansetron HCl (Zofran) 4 mg IVP Q8HR PRN PRN Reason: Nausea And Vomiting Pantoprazole Sodium (Protonix) 40 mg IV DAILY [facility] Last Admin: 08/26/19 07:26 Dose: 40 mg Documented by: Timolol Maleate (Timoptic) 1 drops BOTH EYES BID [facility] Last Admin: 08/26/19 07:28 Dose: 1 drops Documented by: Physical examination: VITAL SIGNS: 98.5, 86, 16, 123/62, 98% on room air GENERAL:, laying in bed, comfortable EYES: Pupils equal. Conjunctiva normal. HEENT: External appearance of nose and ears normal, oral cavity grossly normal. NECK: JVD not raised; masses not palpable. HEART: First and second heart sounds are normal; no edema. LUNGS: Respiratory rate normal; clear to auscultation. ABDOMEN: Soft, nontender, liver spleen not palpable, no masses palpable. PSYCH: Able to answer simple questionsl. NEUROLOGICAL: Cranial nerves grossly intact; no facial asymmetry, power and sensation grossly intact. DERMATOLOGICAL: Large sacral decubitus ulcer. INVESTIGATIONS, reviewed in the clinical context: White count 8.3 hemoglobin 9.7 platelets 394 percussion 4.4 creatinine 1.08 C-reactive protein 187, albumin 2.9, COVID-19 PCR-not detected Wound cultures are showing-multiple organisms including E. coli, Enterococcus faecalis, Enterobacter cloacae keep. Assessment: -Acute infected coccygeal decubitus ulcer-debrided on August [address] Bertrand. Cultures growing multiple organisms -Persistent atrial fibrillation -Late onset Alzheimer's dementia -Diabetes mellitus type 2 -Hyperlipidemia -Essential hypertension Plan: Continue current medication treatment plan. On IV Unasyn. IV vancomycin. Continue wound care.
[2019-08-26] MEDS: ATORVASTATIN 10 MG TAB PO SCH (21:59)
--- NOTE | 2019-08-26 22:51 | PN ---
PROGRESS NOTE DATE OF SERVICE: 08/26/2019 REASON FOR FOLLOWUP: Sacral pressure ulcer. INTERVAL HISTORY: The patient is currently afebrile. The patient is breathing comfortably. The patient denies having any chest pain or any cough. No nausea, no vomiting, no abdominal pain or pain to the sacral wound area. PHYSICAL EXAMINATION: Blood pressure 139/44 with a pulse of 89, temperature 98.3. He is 98% on room air. General description is an elderly male lying in bed in no distress. RESPIRATORY SYSTEM: Unlabored breathing. Clear to auscultation anteriorly. HEART: S1, S2. Regular rate and rhythm. ABDOMEN: Soft. No tenderness. Sacral wound stage III with still some slough tissue and surrounding redness. No foul- smelling drainage. LABS: BUN of 14, creatinine 1.29. The culture from the sacral wound is showing E coli, Enterococcus faecalis and Enterobacter. cultures were requested; unfortunately not done. DIAGNOSTIC IMPRESSION AND PLAN: Patient with infected sacral pressure ulcer, status post debridement. Culture with multiple pathogens. Will be recommending a midline for continuation of IV Unasyn and oral Cipro. With no resistant Gram-positive, vancomycin will be discontinued. Monitor clinical course closely. MMODL / IJN: [id number] /
[2019-08-27] MEDS: AMPICILLIN-SULBACTAM 3 GM in SODIUM CHLORIDE 0.9% 100 ML IVPB SCH ×3 (01:44→11:32)
[2019-08-27] MEDS ORDERED: VANCOMYCIN TROUGH DUE 1 EACH MISC MISCELLANE ONE (05:00)
[2019-08-27] MEDS: LACTATED RINGERS 1,000 ML IV SCH (06:17)
[2019-08-27] MEDS: VANCOMYCIN 1,750 MG in SODIUM CHLORIDE 0.9% 500 ML 500 ML IVPB SCH (06:29)
[2019-08-27] MEDS: INSULIN ASPART (NovoLOG) 100 UNIT/ML VIAL SQ SCH ×2 (07:40→12:25)
[2019-08-27 07:53] LABS: Glucose,Whole Blood 142 mg/dL (75-99)
[2019-08-27 08:02] LABS: Glucose,Whole Blood 154 mg/dL (75-99)
[2019-08-27 08:02] LABS: Glucose,Whole Blood 153 mg/dL (75-99)
[2019-08-27 08:02] LABS: Glucose,Whole Blood 149 mg/dL (75-99)
[2019-08-27 08:19] VITALS: BP 149/61; PULSE 91; RESP 18; TEMP 98.6
[2019-08-27] MEDS: PANTOPRAZOLE 40 MG/10 ML VIAL IV SCH (09:00)
[2019-08-27] MEDS: amLODIPine 5 MG TAB PO SCH (09:01)
[2019-08-27] MEDS: TIMOLOL 0.5% OPHTH DROPS 5 ML BTL BOTH EYES SCH (09:01)
[2019-08-27] MEDS: METOPROLOL SUCCINATE (ER) 25 MG TAB.ER.24H PO SCH (09:01)
[2019-08-27] MEDS: SODIUM CHLORIDE 0.9% 1,000 ML IV SCH (11:31)
[2019-08-27 12:10] LABS: Glucose,Whole Blood 152 mg/dL (75-99)
--- NOTE | 2019-08-27 12:44 | P.PN ---
Subjective Progress Note Date: 08/27/19 CHIEF COMPLAINT: Sacral decubitus ulcer HISTORY OF PRESENT ILLNESS: Patient is status post debridement of sacral decubitus ulcer with Dr. Bertrand. Postop day #2. Patient reports his pain is tolerable. PHYSICAL EXAM: VITAL SIGNS: Reviewed. GENERAL: Well-developed in no acute distress. HEENT: No sclera icterus. Extraocular movements grossly intact. Moist buccal mucosa. Head is atraumatic, normocephalic. ABDOMEN: Soft. Nondistended. Nontender. NEUROLOGIC: Alert and oriented. Cranial nerves II through XII grossly intact. SKIN: Dressing clean dry and intact ASSESSMENT: 1. Stage IV sacral decubitus ulcer PLAN: Continue antibiotics per infectious disease Continue local wound care per infectious disease Nurse practitioner note has been reviewed by physician. Signing provider agrees with the documented findings, assessment, and plan of care. Objective - Vital Signs Vital signs: Vital Signs Temp 98.6 F 08/27/19 07:00 Pulse 91 08/27/19 07:00 Resp 18 08/27/19 07:00 BP 149/61 08/27/19 07:00 Pulse Ox 96 08/27/19 07:00 Intake & Output 08/26/19 08/27/19 08/27/19 18:59 06:59 18:59 Intake Total 1840 50 Output Total 625 Balance 1840 -575 Intake: Intake, IV Titration 1300 Amount Ampicillin-Sulbactam 3 gm 100 In Sodium Chloride 0.9% 100 ml @ 200 mls/hr IVPB Q6HR [facility] Rx#:[id number] Sodium Chloride 0.9% 1, 700 000 ml @ 100 mls/hr IV . Q10H [facility] Rx#:[id number] Vancomycin 1,750 mg In 500 Sodium Chloride 0.9% 500 ml 500 ml @ 167 mls/hr IVPB Q16H [facility] Rx#: [id number] Oral 540 50 Output: Urine 625 Other: Voiding Method Urinal Urinal - Labs CBC & Chem 7: 08/24/19 09:45 08/26/19 07:22 Labs: Abnormal Lab Results - Last 24 Hours (Table) 08/26/19 08/26/19 08/26/19 Range/Units 17:10 20:34 21:53 POC Glucose (mg/dL) 154 H 142 H 149 H (75-99) mg/dL 08/27/19 08/27/19 Range/Units 06:53 12:08 POC Glucose (mg/dL) 153 H 152 H (75-99) mg/dL Microbiology - Last 24 Hours (Table) 08/24/19 09:45 Gram Stain - Final Buttock Wound Culture - Final Escherichia coli Enterococcus faecalis Enterobacter cloacae 08/24/19 10:45 Blood Culture - Preliminary Blood No Growth after 48 hours
[2019-08-27] MEDS ORDERED: CIPROFLOXACIN HCL 500 MG TAB PO SCH (15:00)
--- NOTE | 2019-08-27 15:18 | P.DS ---
Providers Date of admission: 08/26/19 07:47 Expected date of discharge: 08/27/19 Attending physician: Catracho Chen Consults: 08/24/19 12:29 Consult Physician Stat Consulting Provider: Jorge Bertrand Consult Reason/Comments: sacral decubitus ulcer Do you want consulting provider notified?: Yes Consult Physician Stat Consulting Provider: Dawood Cristina Consult Reason/Comments: Wound care, sacral decubitus Do you want consulting provider notified?: Yes Primary care physician: [facility] Course: Chief Complaint: Infected decubitus ulcer History of presenting complaint: This is a pleasant 69-year-old patient, Dr. Youssef whose chronic stable medical conditions include gout, hypertension, hyperlipidemia, diabetes, and mentioned, to establish. Presented from [facility] with a sacral wound getting worse. It is a decub ulcer. It is started to drain. Patient has pain. No obvious fever and chills. His appetite is somewhat okay. Patient of the most detailed historian. Pain is localized to the sacral area. Admitted with infected decubitus ulcer. Debridement on August [address] Bertrand. Growing multiple organisms. Today-pain control. Starting diet. No new issues. Arrange for a midline to be placed. Discussed with oncology social worker. Antibiotics per ID.-Unasyn every 6 total of 120 does is, ciprofloxacin 5 mg every 12 total of 60 tablets Discussion and discharge planning more than 35 minutes Consultation: Dr. Bertrand from general surgery Dr. Cristina from ID Physical examination: VITAL SIGNS: 98.6, 91, 18, 149/61, 96% on room air GENERAL:, laying in bed, comfortable EYES: Pupils equal. Conjunctiva normal. HEENT: External appearance of nose and ears normal, oral cavity grossly normal. NECK: JVD not raised; masses not palpable. HEART: First and second heart sounds are normal; no edema. LUNGS: Respiratory rate normal; clear to auscultation. ABDOMEN: Soft, nontender, liver spleen not palpable, no masses palpable. PSYCH: Able to answer simple questionsl. NEUROLOGICAL: Cranial nerves grossly intact; no facial asymmetry, power and sensation grossly intact. DERMATOLOGICAL: Large sacral decubitus ulcer. INVESTIGATIONS, reviewed in the clinical context: White count 8.3 hemoglobin 9.7 platelets 394 percussion 4.4 creatinine 1.08 C-reactive protein 187, albumin 2.9, COVID-19 PCR-not detected Wound cultures are showing-multiple organisms including E. coli, Enterococcus faecalis, Enterobacter cloacae keep. Assessment: -Acute infected coccygeal decubitus ulcer-debrided on August [address] Bertrand. Cultures growing multiple organisms -Persistent atrial fibrillation -Late onset Alzheimer's dementia -Diabetes mellitus type 2 -Hyperlipidemia -Essential hypertension disposition: [facility] Labs: CBC BMP weekly Patient Condition at Discharge: Stable Plan - Discharge Summary New Discharge Prescriptions: New Ciprofloxacin HCl [Cipro] 500 mg PO Q12HR #60 tab Ampicillin-Sulbactam [Unasyn] 3 gm IVPB Q6HR #120 vial Continue Ibuprofen 600 mg PO Q6H PRN PRN Reason: Pain Timolol 0.5% Ophth Soln [Timoptic 0.5% Ophth Soln] 1 drop BOTH EYES BID Metoprolol Succinate [[place] Sprinkle] 25 mg PO DAILY Atorvastatin [Lipitor] 10 mg PO HS amLODIPine [Norvasc] 5 mg PO DAILY Hydrocodone/Acetaminophen [[place] 7.5-325] 1 tab PO Q6H PRN #12 tab PRN Reason: Pain Discontinued Mupirocin 2% Oint [Bactroban 2% Oint] 1 applic TOPICAL DAILY PRN PRN Reason: TESTICLES Discharge Medication List Atorvastatin [Lipitor] 10 mg PO HS 08/24/19 [History] Ibuprofen 600 mg PO Q6H PRN 08/24/19 [History] Metoprolol Succinate [[place] Sprinkle] 25 mg PO DAILY 08/24/19 [History] Timolol 0.5% Ophth Soln [Timoptic 0.5% Ophth Soln] 1 drop BOTH EYES BID 08/24/19 [History] amLODIPine [Norvasc] 5 mg PO DAILY 08/24/19 [History] Ampicillin-Sulbactam [Unasyn] 3 gm IVPB Q6HR #120 vial 08/27/19 [Rx] Ciprofloxacin HCl [Cipro] 500 mg PO Q12HR #60 tab 08/27/19 [Rx] Hydrocodone/Acetaminophen [[place] 7.5-325] 1 tab PO Q6H PRN #12 tab 08/27/19 [Rx] Follow up Appointment(s)/Referral(s): Peter Youssef DO [Primary Care Provider] - 1-2 days Jorge Bertrand MD [STAFF PHYSICIAN] - 1 Week Activity/Diet/Wound Care/Special Instructions: Local wound care to the sacral wound with Santyl followed by moist dressing to be changed daily Follow-up with Dr. Cristina in the wound care center in 1 week, call [phone] to make an appointment
[2019-08-27] MEDS: ENOXAPARIN 40 MG/0.4 ML SYRINGE SQ SCH (15:59)
--- NOTE | 2019-08-27 16:48 | PN ---
PROGRESS NOTE DATE OF SERVICE: 08/27/2019 REASON FOR FOLLOWUP: Infected sacral pressure ulcer, stage III. INTERVAL HISTORY: The patient is currently afebrile. The patient is breathing comfortably. The patient denies having any chest pain or any cough. No nausea or vomiting. No abdominal pain or pain to the sacral wound area. PHYSICAL EXAMINATION: Blood pressure 149/61 with a pulse of 91, temperature 98.6. He is 96% on room air. General description is an elderly male lying in bed in no distress. RESPIRATORY SYSTEM: Unlabored breathing. Clear to auscultation anteriorly. HEART: S1, S2. Regular rate and rhythm. ABDOMEN: Soft. No tenderness. LABS: No new labs have been obtained today. Wound culture with E coli, Enterococcus, Enterobacter. Blood cultures have been negative. DIAGNOSTIC IMPRESSION AND PLAN: Patient with infected sacral pressure ulcer with multiple pathogens. Local care with Santyl followed by moist dressing. Antibiotic in the form of Unasyn 3 grams q.6 and oral Cipro 500 mg twice a day for 4 weeks and close outpatient followup. MMODL / IJN: [id number] /
[2019-08-27 16:58] LABS: Glucose,Whole Blood 162 mg/dL (75-99)
[2019-08-28] MEDS ORDERED: VANCOMYCIN 1,750 MG in SODIUM CHLORIDE 0.9% 500 ML 500 ML IVPB SCH (09:00)
[2019-08-28] MEDS ORDERED: PANTOPRAZOLE 40 MG TABLET PO SCH (09:00)
== END 2019-08-27 17:40 | DRG 571 ==
LOC: EC 09:34 → 4SSUR 12:31 → OBSVTOIN 08-26 07:47
PROVIDERS: ADMIT Hospitalist; ATTEND Hospitalist
PROC: 0JB70ZZ Excision of Back Subcutaneous Tissue and Fascia, Open Approach (ICD-10-PCS; principal; 2019-08-25 12:15)
PROC: 05HC33Z Insertion of Infusion Device into Left Basilic Vein, Percutaneous Approach (ICD-10-PCS; 2019-08-27 15:05)
DX: L89.154 Pressure ulcer of sacral region, stage 4 (principal); I48.19 Other persistent atrial fibrillation; E11.9 Type 2 diabetes mellitus without complications; E78.5 Hyperlipidemia, unspecified; F02.80 Dementia in other diseases classified elsewhere, unspecified severity, without behavioral disturbance, psychotic disturbance, mood disturbance, and anxiety; G30.1 Alzheimer's disease with late onset; I10 Essential (primary) hypertension; M10.9 Gout, unspecified; Z79.899 Other long term (current) drug therapy; Z20.828 Contact with and (suspected) exposure to other viral communicable diseases
CPT/HCPCS: 36410; 36415; 71046; 76937; 80048; 80053; 80202; 81001; 83605; 83615; 84484; 85025; 85610; 85652; 85730; 86140; 87040; 87070; 87077; 87186; 87205; 87635; 93005; 96365; 96375; 99285